=== PATIENT | male | born 1980 | race Caucasian/White ===

== ENCOUNTER 2017-04-04 02:21 | Emergency (ER) | payer OTHER ==
[~2017-04-04] VITALS: Ht 177.8 cm; Wt 100.0 kg
[~2017-04-04 02:21] MED LIST: AMOXICILLIN; IBUPROFEN
[2017-04-04] MEDS ORDERED: DEXTROSE 50% WATER 50ML SYRINGE IV ONE ×2 (03:57→03:59)
[2017-04-04 04:31] LABS: HEMATOCRIT. 38.7 % (42.0-52.0); HEMOGLOBIN. 13.2 g/dL (14.0-18.0); MEAN CORPUSCULAR HEMOGLOBIN 26.9 pg (28.0-32.0); MEAN CORPUSCULAR HGB CONC 34.1 g/dL (31.0-37.0); MEAN CORPUSCULAR VOLUME 78.9 fL (80.0-94.0); MEAN PLATELET VOLUME 9.5 fl (7.4-10.4); PLATELET 297 x1000/uL (130-400); RED CELL DISTRIBUTION WIDTH 15.9 % (11.6-14.6); WHITE BLOOD COUNT 9.5 x1000/uL (4.5-11.0)
[2017-04-04 04:39] LABS: DIFFERENTIAL COMMENT 1
[2017-04-04 04:44] LABS: ANION GAP 15; CALCIUM 7.9 mg/dL (8.5-10.1); CARBON DIOXIDE 27 mEq/L (21-32); CHLORIDE 100 mEq/L (98-107); INDEX HEMOLYSI 1 (1-3); INDEX ICTERIC 1 (1-4); INDEX LIPEMIC 1 (1-3); UREA NITROGEN BLOOD 13 mg/dL (7-21); eGFR > 60 mL/min (>60)
[2017-04-04 05:55] LABS: ATYPICAL LYMPHOCYTES 2; PLATELET ESTIMATE NORMAL
[2017-04-04 07:00] VITALS: BP 140/85
[2017-04-04 07:25] LABS: CLARITY URINE CLEAR (CLEAR); COLOR URINE YELLOW (YELLOW); GLUCOSE URINE NEGATIVE (NEGATIVE); KETONES URINE NEGATIVE (NEGATIVE); LEUKOCYTE ESTERASE URINE NEGATIVE (NEGATIVE); NITRITE URINE NEGATIVE (NEGATIVE); OCCULT BLOOD URINE 2+ (NEGATIVE); PH URINE 6.5 (4.5-8.0); PROTEIN URINE 4+ (NEGATIVE); SPECIFIC GRAVITY URINE 1.018 (1.005-1.030)
[2017-04-04 07:42] LABS: SQUAMOUS EPITHELIAL CELL URINE FEW /lpf (RARE/1+)
[2017-04-04 07:43] LABS: RBC URINE 15-25 /hpf (0-2)
[2017-04-04 07:44] LABS: FINE GRANULAR CASTS URINE 0-5 /lpf; HYALINE CASTS URINE 0-5 /lpf; WBC URINE 0-2 /hpf (0-2)
[2017-04-04 07:45] LABS: BACTERIA URINE 2+
[2017-04-05] MEDS ORDERED: GABA-290 PO (01:39)
[2017-04-05] MEDS ORDERED: GLYB5TAB7 PO (01:39)
[2017-04-05] MEDS ORDERED: LISI-604 PO (01:39)
[2017-04-05] MEDS ORDERED: METF10002 PO (01:39)
== END 2017-04-04 07:33 | disposition home or self-care (01) ==
LOC: ER 02:27
DX: E11.649 Type 2 diabetes mellitus with hypoglycemia without coma (principal); I10 Essential (primary) hypertension; Z79.1 Long term (current) use of non-steroidal anti-inflammatories (NSAID); Z79.2 Long term (current) use of antibiotics
CPT/HCPCS: 36415; 80048; 81001; 82962; 85025; 99284; Z7610

== ENCOUNTER 2017-04-04 16:14 | Inpatient (IN) | payer OTHER ==
[~2017-04-04] VITALS: Ht 180.3 cm; Wt 113.4 kg
[2017-04-04 17:49] LABS: CLARITY URINE CLOUDY (CLEAR); COLOR URINE YELLOW (YELLOW); GLUCOSE URINE NEGATIVE (NEGATIVE); KETONES URINE NEGATIVE (NEGATIVE); LEUKOCYTE ESTERASE URINE NEGATIVE (NEGATIVE); NITRITE URINE NEGATIVE (NEGATIVE); OCCULT BLOOD URINE 1+ (NEGATIVE); PROTEIN URINE 3+ (NEGATIVE); SPECIFIC GRAVITY URINE 1.013 (1.005-1.030)
[2017-04-04 18:05] LABS: AMORPHOUS SEDIMENT URINE 1+ /lpf; BACTERIA URINE 2+; SQUAMOUS EPITHELIAL CELL URINE FEW /lpf (RARE/1+); WBC URINE 0-2 /hpf (0-2)
[2017-04-04] MEDS ORDERED: DEXT 5%/0.45% NACL 500 ML IV ONE (20:15)
[2017-04-04] MEDS ORDERED: DEXTROSE 50% WATER 50ML SYRINGE IV ONE (23:15)
[2017-04-05 01:20] VITALS: BP 162/100
[2017-04-05] MEDS ORDERED: GLYB5TAB7 PO (01:39)
[2017-04-05] MEDS ORDERED: METF10002 PO (01:39)
[2017-04-05] MEDS ORDERED: LISI-604 PO (01:39)
[2017-04-05] MEDS ORDERED: GABA-290 PO (01:39)
[2017-04-05] MEDS ORDERED: DEXTROSE 50% WATER 50ML SYRINGE IV PRN (03:30)
[2017-04-05] MEDS ORDERED: DEXTROSE 10% WATER 500 ML IV SCH (03:30)
[2017-04-05] MEDS ORDERED: DEXTROSE 10% WATER 1,000 ML IV SCH (04:00)
[2017-04-05] MEDS: GUAIFENESIN-DM 200MG-20MG/10ML UDC PO PRN ×2 (04:16→15:50)
[2017-04-05] MEDS: BLOOD SUGAR DIAGNOSTIC STRIP TEST SCH ×4 (05:42→22:21)
[2017-04-05] MEDS: INSULIN LISPRO 100 UNITS/ML SUBCUT SCH ×4 (07:50→22:26)
[2017-04-05 08:00] VITALS: BP 158/94
[2017-04-05] MEDS: GABAPENTIN 300MG CAPSULE PO SCH ×2 (08:51→16:27)
[2017-04-05] MEDS: LISINOPRIL 20MG TABLET PO SCH (08:51)
[2017-04-05 09:38] LABS: HEMATOCRIT. 36.4 % (42.0-52.0); HEMOGLOBIN. 12.2 g/dL (14.0-18.0); MEAN CORPUSCULAR HEMOGLOBIN 26.5 pg (28.0-32.0); MEAN CORPUSCULAR HGB CONC 33.6 g/dL (31.0-37.0); MEAN CORPUSCULAR VOLUME 79.1 fL (80.0-94.0); MEAN PLATELET VOLUME 9.7 fl (7.4-10.4); PLATELET 296 x1000/uL (130-400); WHITE BLOOD COUNT 8.5 x1000/uL (4.5-11.0)
[2017-04-05 09:42] LABS: DIFFERENTIAL COMMENT 1
[2017-04-05 09:51] LABS: ALBUMIN 1.9 g/dL (3.4-5.0); ANION GAP 12; CALCIUM 7.5 mg/dL (8.5-10.1); CARBON DIOXIDE 28 mEq/L (21-32); CHLORIDE 103 mEq/L (98-107); UREA NITROGEN BLOOD 14 mg/dL (7-21); eGFR > 60 mL/min (>60)
[2017-04-05 09:52] LABS: ALANINE AMINOTRANSFERASE 53 IU/L (13-61); INDEX HEMOLYSI 1 (1-3); INDEX ICTERIC 1 (1-4); INDEX LIPEMIC 1 (1-3)
[2017-04-05] MEDS: HEPARIN 5000 UNITS/ML VIAL SUBCUT SCH ×2 (10:48→22:17)
[2017-04-05 12:00] VITALS: BP 151/94
[2017-04-05] MEDS ORDERED: DEXTROSE 5% WATER 1,000 ML IV SCH (15:00)
[2017-04-05 15:20] LABS: ANISOCYTOSIS 1+; PLATELET ESTIMATE NORMAL
[2017-04-05 16:00] VITALS: BP 147/94
[2017-04-05 20:00] VITALS: BP 159/88
[2017-04-06] VITALS: BP 124/73
[2017-04-06 04:00] VITALS: BP 132/81
[2017-04-06] MEDS: BLOOD SUGAR DIAGNOSTIC STRIP TEST SCH ×2 (06:52→12:45)
[2017-04-06] MEDS: INSULIN LISPRO 100 UNITS/ML SUBCUT SCH ×2 (07:50→13:00)
[2017-04-06 08:00] VITALS: BP 150/94
[2017-04-06] MEDS: GABAPENTIN 300MG CAPSULE PO SCH (08:37)
[2017-04-06] MEDS: LISINOPRIL 20MG TABLET PO SCH (08:38)
[2017-04-06] MEDS: GUAIFENESIN-DM 200MG-20MG/10ML UDC PO PRN (08:38)
[2017-04-06] MEDS: HEPARIN 5000 UNITS/ML VIAL SUBCUT SCH (08:39)
[2017-04-06 12:00] VITALS: BP 143/92
[2017-04-06 16:00] VITALS: BP 141/93
[2017-04-06 17:07] VITALS: BP 141/89
== END 2017-04-06 17:30 | disposition home or self-care (01) | DRG 639 ==
LOC: ER 16:22 → 6EST 20:18
PROVIDERS: ADMIT Internal Medicine; ATTEND Ophthalmology
DX: E11.649 Type 2 diabetes mellitus with hypoglycemia without coma (principal); I10 Essential (primary) hypertension; D64.9 Anemia, unspecified; T50.905A Adverse effect of unspecified drugs, medicaments and biological substances, initial encounter
CPT/HCPCS: 36415; 80053; 80061; 81001; 82962; 83036; 85025; 99285; J1644; J1815; J7030; J7070

== ENCOUNTER 2017-05-26 15:56 | Inpatient (IN) | payer OTHER ==
[~2017-05-26] VITALS: Ht 177.8 cm; Wt 116.6 kg
[~2017-05-26 15:56] MED LIST changes: -AMOXICILLIN; +GABA-290 PO; -IBUPROFEN; +LISI-604 PO; +METF10002 PO
[2017-05-26] MEDS ORDERED: SODIUM CHLORIDE 0.9% 1,000 ML IV ONE (20:21)
[2017-05-26 20:55] LABS: INR 1.1; PROTHROMBIN TIME 11.5 sec
[2017-05-26 20:56] LABS: BASOPHILS % 1.2 % (0.0-2.0); EOSINOPHILS % 1.6 % (0.0-5.0); HEMATOCRIT. 34.3 % (42.0-52.0); HEMOGLOBIN. 11.5 g/dL (14.0-18.0); LYMPHOCYTES % 15.5 % (20.0-50.0); MEAN CORPUSCULAR VOLUME 77.5 fL (80.0-94.0); MEAN PLATELET VOLUME 8.8 fl (7.4-10.4); MONOCYTES % 10.8 % (2.0-8.0); NEUTROPHILS % 70.9 % (40.0-76.0); PLATELET 426 x1000/uL (130-400); RED BLOOD CELL COUNT 4.42 mill/uL (4.7-6.1)
[2017-05-26 21:02] LABS: CARBON DIOXIDE 27 mEq/L (21-32); CHLORIDE 104 mEq/L (98-107)
[2017-05-26 21:52] LABS: CLARITY URINE CLEAR (CLEAR); COLOR URINE YELLOW (YELLOW); GLUCOSE URINE TRACE (NEGATIVE); KETONES URINE NEGATIVE (NEGATIVE); LEUKOCYTE ESTERASE URINE NEGATIVE (NEGATIVE); NITRITE URINE NEGATIVE (NEGATIVE); OCCULT BLOOD URINE 2+ (NEGATIVE); PH URINE 6.5 (4.5-8.0); PROTEIN URINE 4+ (NEGATIVE); SPECIFIC GRAVITY URINE 1.012 (1.005-1.030)
[2017-05-27] MEDS ORDERED: CEFTRIAXONE 1 G PREMIX 50 ML IV ONE (00:30)
[2017-05-27] MEDS ORDERED: AZITHROMYCIN 500 MG in DEXT 5% WATER 250 ML IV SCH (00:30)
[2017-05-27] MEDS ORDERED: SODIUM CHLORIDE 0.9% 1,000 ML IV ONE (00:36)
[2017-05-27 06:00] VITALS: BP 166/98
[2017-05-27] MEDS ORDERED: ASPI-1159 PO (06:15)
[2017-05-27] MEDS ORDERED: AMLO2.5T45 PO (06:15)
[2017-05-27 06:25] VITALS: BP 166/98
[2017-05-27 08:00] VITALS: BP 166/95
[2017-05-27] MEDS ORDERED: HYDROCODONE/ACETAMINOPHEN 5/325MG TABLET PO PRN (08:30)
[2017-05-27] MEDS ORDERED: ACETAMINOPHEN 325MG TABLET PO PRN (08:30)
[2017-05-27] MEDS ORDERED: CLONIDINE 0.1MG TABLET PO PRN (08:30)
[2017-05-27] MEDS: ENOXAPARIN 30MG/0.3ML SYR SUBCUT SCH ×2 (09:33→20:28)
[2017-05-27] MEDS: OMEPRAZOLE 20MG CAPSULE EXTENDED RELEASE PO SCH (09:33)
[2017-05-27] MEDS: ASPIRIN 81MG EC TABLET PO SCH (09:34)
[2017-05-27] MEDS: LISINOPRIL 20MG TABLET PO SCH (09:34)
[2017-05-27] MEDS: AMLODIPINE 5MG TABLET PO SCH (09:34)
[2017-05-27] MEDS ORDERED: DEXTROSE 50% WATER 50ML SYRINGE IV PRN (09:45)
[2017-05-27 11:00] LABS: BASOPHILS % 1.2 % (0.0-2.0); EOSINOPHILS % 1.5 % (0.0-5.0); HEMOGLOBIN. 12.8 g/dL (14.0-18.0); LYMPHOCYTES % 13.2 % (20.0-50.0); MEAN CORPUSCULAR VOLUME 77.4 fL (80.0-94.0); MEAN PLATELET VOLUME 9.1 fl (7.4-10.4); MONOCYTES % 8.6 % (2.0-8.0); NEUTROPHILS % 75.5 % (40.0-76.0); PLATELET 511 x1000/uL (130-400); RED BLOOD CELL COUNT 4.91 mill/uL (4.7-6.1); RED CELL DISTRIBUTION WIDTH 15.1 % (11.6-14.6)
[2017-05-27] MEDS: BLOOD SUGAR DIAGNOSTIC STRIP TEST SCH ×3 (11:11→20:32)
[2017-05-27] MEDS: SODIUM CHL 0.45% + KCL 20MEQ/L 1,000 ML IV SCH ×2 (11:11→20:56)
[2017-05-27] MEDS: INSULIN LISPRO 100 UNITS/ML SUBCUT SCH ×3 (11:17→20:33)
[2017-05-27 11:28] LABS: CARBON DIOXIDE 29 mEq/L (21-32); CHLORIDE 104 mEq/L (98-107)
[2017-05-27 12:00] VITALS: BP 152/88
[2017-05-27 16:00] VITALS: BP 163/97
[2017-05-27 20:00] VITALS: BP 145/84
[2017-05-28] VITALS: BP 149/89
[2017-05-28 04:00] VITALS: BP 151/91
[2017-05-28] MEDS: SODIUM CHL 0.45% + KCL 20MEQ/L 1,000 ML IV SCH (06:13)
[2017-05-28] MEDS: OMEPRAZOLE 20MG CAPSULE EXTENDED RELEASE PO SCH (06:13)
[2017-05-28] MEDS: INSULIN LISPRO 100 UNITS/ML SUBCUT SCH ×2 (06:14→12:45)
[2017-05-28] MEDS: BLOOD SUGAR DIAGNOSTIC STRIP TEST SCH ×2 (06:14→11:45)
[2017-05-28] MEDS ORDERED: IPRATROPIUM/ALBUTEROL 0.5-3(2.5)MG/3ML NEB HHN PRN (06:30)
[2017-05-28 06:34] LABS: CARBON DIOXIDE 26 mEq/L (21-32); CHLORIDE 106 mEq/L (98-107)
[2017-05-28 06:47] LABS: BASOPHILS % 1.2 % (0.0-2.0); EOSINOPHILS % 2.9 % (0.0-5.0); HEMATOCRIT. 32.5 % (42.0-52.0); HEMOGLOBIN. 10.9 g/dL (14.0-18.0); LYMPHOCYTES % 20.1 % (20.0-50.0); MEAN CORPUSCULAR HEMOGLOBIN 25.8 pg (28.0-32.0); MEAN CORPUSCULAR VOLUME 77.1 fL (80.0-94.0); MEAN PLATELET VOLUME 8.9 fl (7.4-10.4); MONOCYTES % 9.9 % (2.0-8.0); NEUTROPHILS % 65.9 % (40.0-76.0); PLATELET 431 x1000/uL (130-400); RED BLOOD CELL COUNT 4.22 mill/uL (4.7-6.1); RED CELL DISTRIBUTION WIDTH 14.6 % (11.6-14.6)
[2017-05-28 08:00] VITALS: BP 155/96
[2017-05-28] MEDS: ASPIRIN 81MG EC TABLET PO SCH (08:50)
[2017-05-28] MEDS: LISINOPRIL 20MG TABLET PO SCH (08:50)
[2017-05-28] MEDS: AMLODIPINE 5MG TABLET PO SCH (08:51)
[2017-05-28] MEDS: ENOXAPARIN 30MG/0.3ML SYR SUBCUT SCH (08:54)
[2017-05-28] MEDS ORDERED: CEFTRIAXONE 1 G PREMIX 50 ML IV SCH (09:00)
[2017-05-28] MEDS ORDERED: AZITHROMYCIN 500 MG in DEXT 5% WATER 250 ML IV SCH (09:00)
[2017-05-28 12:00] VITALS: BP 148/96
[2017-05-28 14:49] VITALS: BP 149/96
== END 2017-05-28 15:10 | disposition home or self-care (01) | DRG 195 ==
LOC: ER 21:39 → 5WST 05-27 00:29 → ENRESERV 05-27 04:26
PROVIDERS: ADMIT Internal Medicine; ATTEND Internal Medicine
DX: J18.9 Pneumonia, unspecified organism (principal); E11.65 Type 2 diabetes mellitus with hyperglycemia; I10 Essential (primary) hypertension
CPT/HCPCS: 36415; 71010; 74176; 80048; 80053; 81001; 82941; 82962; 83605; 83690; 85025; 85610; 86677; 87040; 93005; 94640; 96361; 96365; 96368; 99285; J0456; J0696; J1650; J1815; J3480; J7030; J7060; J7620

== ENCOUNTER 2017-08-23 13:28 | Inpatient (IN) | payer OTHER ==
[~2017-08-23] VITALS: Ht 177.8 cm; Wt 114.3 kg
[~2017-08-23 13:28] MED LIST changes: +ASPI-1159 PO
[2017-08-23] MEDS ORDERED: METOCLOPRAMIDE HCL 10MG/2ML VIAL IV STA (16:00)
[2017-08-23] MEDS ORDERED: SODIUM CHLORIDE 0.9% 1,000 ML IV ONE (16:00)
[2017-08-23] MEDS ORDERED: MORPHINE SULFATE 4 MG/ML CPJ (NOT FOR IM USE) IV STA (16:00)
[2017-08-23 16:27] LABS: CLARITY URINE CLEAR (CLEAR); COLOR URINE YELLOW (YELLOW); GLUCOSE URINE 2+ (NEGATIVE); KETONES URINE NEGATIVE (NEGATIVE); LEUKOCYTE ESTERASE URINE NEGATIVE (NEGATIVE); NITRITE URINE NEGATIVE (NEGATIVE); OCCULT BLOOD URINE 2+ (NEGATIVE); PH URINE 6.5 (4.5-8.0); PROTEIN URINE 4+ (NEGATIVE); SPECIFIC GRAVITY URINE 1.022 (1.005-1.030)
[2017-08-23 16:30] LABS: EOSINOPHILS % 1.8 % (0.0-5.0); HEMATOCRIT. 35.4 % (42.0-52.0); HEMOGLOBIN. 11.9 g/dL (14.0-18.0); LYMPHOCYTES % 8.9 % (20.0-50.0); MEAN CORPUSCULAR HEMOGLOBIN 25.4 pg (28.0-32.0); MEAN CORPUSCULAR VOLUME 75.8 fL (80.0-94.0); MEAN PLATELET VOLUME 8.4 fl (7.4-10.4); MONOCYTES % 8.9 % (2.0-8.0); NEUTROPHILS % 79.4 % (40.0-76.0); PLATELET 398 x1000/uL (130-400); RED BLOOD CELL COUNT 4.67 mill/uL (4.7-6.1)
[2017-08-23 16:34] LABS: CHLORIDE 104 mEq/L (98-107); INR 1.1; PROTHROMBIN TIME 11.2 sec (9.4-11.6)
[2017-08-23 16:41] LABS: CARBON DIOXIDE 26 mEq/L (21-32)
[2017-08-23 16:42] LABS: BETA HYDROXYBUTYRATE 0.2 mMol/L (0.0-0.3)
[2017-08-23] MEDS ORDERED: HYDRALAZINE 20MG/ML VIAL IV ONE (17:15)
[2017-08-23] MEDS ORDERED: FUROSEMIDE 40MG/4ML VIAL IVP ONE (17:15)
[2017-08-23] MEDS ORDERED: CLONIDINE 0.2MG TABLET PO ONE (20:30)
[2017-08-23 23:04] VITALS: BP 172/97
[2017-08-24] MEDS ORDERED: LISI40TA4 PO (00:06)
[2017-08-24] MEDS ORDERED: ACETAMINOPHEN 325MG TABLET PO PRN (00:15)
[2017-08-24] MEDS ORDERED: TEMAZEPAM 15MG CAPSULE PO PRN (00:15)
[2017-08-24] MEDS ORDERED: FUROSEMIDE 20MG/2ML VIAL IVP NR (00:15)
[2017-08-24] MEDS ORDERED: DEXTROSE 50% WATER 50ML SYRINGE IV PRN (01:15)
[2017-08-24] MEDS: ASPIRIN 81MG EC TABLET PO SCH ×2 (01:34→08:25)
[2017-08-24] MEDS: LISINOPRIL 40MG TABLET PO SCH ×2 (01:35→08:26)
[2017-08-24] MEDS: LEVOFLOXACIN 500MG PREMIX 100 ML IV SCH (03:36)
[2017-08-24 04:30] VITALS: BP 158/100
[2017-08-24] MEDS: SODIUM CHLORIDE 0.9% INJ 3ML FLUSH IVF SCH ×3 (05:54→22:24)
[2017-08-24] MEDS: NITROGLYCERIN OINT 1GM/INCH UDPKT TD SCH ×3 (05:54→22:26)
[2017-08-24] MEDS: GABAPENTIN 300MG CAPSULE PO SCH ×3 (05:54→22:20)
[2017-08-24] MEDS: BLOOD SUGAR DIAGNOSTIC STRIP TEST SCH ×4 (05:58→21:00)
[2017-08-24] MEDS: INSULIN LISPRO 100 UNITS/ML SUBCUT SCH ×4 (05:58→21:00)
[2017-08-24 07:26] LABS: BASOPHILS % 0.8 % (0.0-2.0); HEMATOCRIT. 29.8 % (42.0-52.0); LYMPHOCYTES % 12.2 % (20.0-50.0); MEAN CORPUSCULAR HEMOGLOBIN 25.6 pg (28.0-32.0); MEAN CORPUSCULAR VOLUME 76.2 fL (80.0-94.0); MEAN PLATELET VOLUME 8.8 fl (7.4-10.4); MONOCYTES % 12.4 % (2.0-8.0); NEUTROPHILS % 71.6 % (40.0-76.0); PLATELET 322 x1000/uL (130-400); RED BLOOD CELL COUNT 3.91 mill/uL (4.7-6.1)
[2017-08-24 07:46] LABS: TROPONIN I 0.15 ng/mL (0.00-0.04)
[2017-08-24 08:00] VITALS: BP 170/100
[2017-08-24] MEDS: CARVEDILOL 12.5MG TABLET PO SCH ×2 (08:26→22:22)
[2017-08-24] MEDS: ENOXAPARIN 30MG/0.3ML SYR SUBCUT SCH ×2 (08:29→22:23)
[2017-08-24] MEDS ORDERED: PNEUMOCOCCAL 23-VAL P-SAC VAC 0.5 ML IM ONE (10:00)
[2017-08-24] MEDS ORDERED: CLONIDINE 0.1MG TABLET PO PRN (11:15)
[2017-08-24] MEDS ORDERED: CLONIDINE 0.2MG TABLET PO PRN (11:15)
[2017-08-24 12:00] VITALS: BP 128/76
[2017-08-24] MEDS: FUROSEMIDE 40MG/4ML VIAL IVP SCH (12:00)
[2017-08-24 12:06] LABS: TOTAL IRON BINDING CAPACITY 131 ug/dL (250-450)
[2017-08-24] MEDS: HYDRALAZINE HCL 25MG TABLET PO SCH ×2 (14:09→22:23)
[2017-08-24 16:00] VITALS: BP 131/77
[2017-08-24] MEDS ORDERED: POTASSIUM CHLORIDE 20MEQ TABLET SR PO NR (17:28)
[2017-08-24 19:44] VITALS: BP 139/85
[2017-08-24 22:18] VITALS: BP 151/92
[2017-08-25 00:51] VITALS: BP 142/79
[2017-08-25] MEDS: LEVOFLOXACIN 500MG PREMIX 100 ML IV SCH (03:48)
[2017-08-25 04:57] VITALS: BP 130/77
[2017-08-25] MEDS: NITROGLYCERIN OINT 1GM/INCH UDPKT TD SCH ×3 (05:08→21:36)
[2017-08-25] MEDS: HYDRALAZINE HCL 25MG TABLET PO SCH (05:08)
[2017-08-25] MEDS: SODIUM CHLORIDE 0.9% INJ 3ML FLUSH IVF SCH ×3 (05:08→21:19)
[2017-08-25] MEDS: GABAPENTIN 300MG CAPSULE PO SCH ×3 (05:08→21:19)
[2017-08-25] MEDS: INSULIN LISPRO 100 UNITS/ML SUBCUT SCH ×4 (06:07→20:42)
[2017-08-25] MEDS: BLOOD SUGAR DIAGNOSTIC STRIP TEST SCH ×4 (06:07→20:15)
[2017-08-25 07:32] LABS: CLARITY URINE CLEAR (CLEAR); COLOR URINE YELLOW (YELLOW); GLUCOSE URINE TRACE (NEGATIVE); KETONES URINE NEGATIVE (NEGATIVE); LEUKOCYTE ESTERASE URINE NEGATIVE (NEGATIVE); NITRITE URINE NEGATIVE (NEGATIVE); OCCULT BLOOD URINE TRACE (NEGATIVE); PH URINE 6.5 (4.5-8.0); PROTEIN URINE 3+ (NEGATIVE); SPECIFIC GRAVITY URINE 1.011 (1.005-1.030)
[2017-08-25 07:34] LABS: EOSINOPHILS % 3.1 % (0.0-5.0); HEMATOCRIT. 29.2 % (42.0-52.0); HEMOGLOBIN. 9.7 g/dL (14.0-18.0); LYMPHOCYTES % 14.4 % (20.0-50.0); MEAN CORPUSCULAR HEMOGLOBIN 25.4 pg (28.0-32.0); MEAN CORPUSCULAR VOLUME 76.3 fL (80.0-94.0); MEAN PLATELET VOLUME 8.8 fl (7.4-10.4); MONOCYTES % 12.2 % (2.0-8.0); NEUTROPHILS % 69.3 % (40.0-76.0); PLATELET 331 x1000/uL (130-400); RED BLOOD CELL COUNT 3.82 mill/uL (4.7-6.1); RED CELL DISTRIBUTION WIDTH 15.9 % (11.6-14.6)
[2017-08-25 07:35] LABS: CARBON DIOXIDE 28 mEq/L (21-32); CHLORIDE 102 mEq/L (98-107)
[2017-08-25 08:00] VITALS: BP 125/72
[2017-08-25] MEDS: FUROSEMIDE 40MG/4ML VIAL IVP SCH (08:13)
[2017-08-25] MEDS: ASPIRIN 81MG EC TABLET PO SCH (08:15)
[2017-08-25] MEDS: CARVEDILOL 12.5MG TABLET PO SCH ×2 (08:15→20:13)
[2017-08-25] MEDS: ENOXAPARIN 30MG/0.3ML SYR SUBCUT SCH ×2 (08:16→20:13)
[2017-08-25] MEDS ORDERED: LISINOPRIL 10MG TABLET PO SCH (09:00)
[2017-08-25 11:41] VITALS: BP 125/72
[2017-08-25] MEDS: HYDRALAZINE HCL 50MG TABLET PO SCH ×2 (13:13→21:20)
[2017-08-25] MEDS ORDERED: REGADENOSON 0.4 MG/5 ML IV SCH (13:15)
[2017-08-25] MEDS ORDERED: MAGNESIUM 2 G PREMIX 50 ML IV ONE (13:15)
[2017-08-25] MEDS ORDERED: POTASSIUM CHLORIDE 20MEQ TABLET SR PO SCH (13:15)
[2017-08-25 13:35] LABS: *AMPHETAMINES SCREEN URINE NEGATIVE (NEGATIVE); *BARBITURATES SCREEN URINE NEGATIVE (NEGATIVE); *BENZODIAZEPINES SCREEN URINE NEGATIVE (NEGATIVE); *COCAINE SCREEN URINE NEGATIVE (NEGATIVE); CANNABINOID URINE SCREEN NEGATIVE (NEGATIVE); METHADONE URINE SCREEN NEGATIVE (NEGATIVE); OPIATES URINE SCREEN PRESUMTIVE POSITIVE (NEGATIVE); PHENCYCLIDINE URINE SCREEN NEGATIVE (NEGATIVE)
[2017-08-25] MEDS ORDERED: ALBUMIN HUMAN 25GM/100ML (25%) IV SCH (15:00)
[2017-08-25] MEDS ORDERED: MAGNESIUM SULFATE 3 GM in DEXTROSE 5% WATER 100 ML IV SCH (15:00)
[2017-08-25 15:45] VITALS: BP 111/67
[2017-08-25 16:51] LABS: CREATINE KINASE 84 IU/L (39-308)
[2017-08-25 17:19] LABS: HEPATITIS B SURFACE ANTIGEN NEGATIVE
[2017-08-25 20:00] VITALS: BP 126/76
[2017-08-26] VITALS: BP 128/78
[2017-08-26] MEDS: LEVOFLOXACIN 500MG PREMIX 100 ML IV SCH (02:26)
[2017-08-26 04:00] VITALS: BP 132/76
[2017-08-26] MEDS: HYDRALAZINE HCL 50MG TABLET PO SCH ×3 (05:23→21:18)
[2017-08-26] MEDS: NITROGLYCERIN OINT 1GM/INCH UDPKT TD SCH ×3 (05:23→21:18)
[2017-08-26] MEDS: GABAPENTIN 300MG CAPSULE PO SCH ×3 (05:23→21:18)
[2017-08-26] MEDS: SODIUM CHLORIDE 0.9% INJ 3ML FLUSH IVF SCH ×3 (05:25→21:23)
[2017-08-26 06:09] LABS: BASOPHILS % 0.7 % (0.0-2.0); EOSINOPHILS % 3.2 % (0.0-5.0); HEMATOCRIT. 25.5 % (42.0-52.0); HEMOGLOBIN. 8.5 g/dL (14.0-18.0); LYMPHOCYTES % 19.3 % (20.0-50.0); MEAN CORPUSCULAR HEMOGLOBIN 25.6 pg (28.0-32.0); MEAN CORPUSCULAR VOLUME 76.8 fL (80.0-94.0); MONOCYTES % 11.9 % (2.0-8.0); NEUTROPHILS % 64.9 % (40.0-76.0); PLATELET 269 x1000/uL (130-400); RED BLOOD CELL COUNT 3.32 mill/uL (4.7-6.1); RED CELL DISTRIBUTION WIDTH 16.1 % (11.6-14.6)
[2017-08-26] MEDS: BLOOD SUGAR DIAGNOSTIC STRIP TEST SCH ×4 (06:16→21:10)
[2017-08-26] MEDS: INSULIN LISPRO 100 UNITS/ML SUBCUT SCH ×4 (06:43→21:00)
[2017-08-26 07:40] VITALS: BP 120/78
[2017-08-26 07:57] LABS: PHOSPHORUS 4.2 mg/dL (2.5-4.9)
[2017-08-26] MEDS ORDERED: FUROSEMIDE 40MG/4ML VIAL IVP SCH (09:00)
[2017-08-26] MEDS ORDERED: REGADENOSON 0.4 MG/5 ML IV ONE (09:05)
[2017-08-26 09:30] LABS: HAPTOGLOBIN 302 mg/dL (30-200)
[2017-08-26] MEDS ORDERED: ALBUMIN HUMAN 25GM/100ML (25%) IV SCH (10:00)
[2017-08-26] MEDS: CARVEDILOL 12.5MG TABLET PO SCH (11:24)
[2017-08-26] MEDS: ASPIRIN 81MG EC TABLET PO SCH (11:25)
[2017-08-26] MEDS: ENOXAPARIN 30MG/0.3ML SYR SUBCUT SCH ×2 (11:25→21:10)
[2017-08-26 11:41] VITALS: BP 124/78
[2017-08-26 15:53] VITALS: BP 122/75
[2017-08-26 20:00] VITALS: BP 142/82
[2017-08-26] MEDS: CARVEDILOL 6.25 MG TABLET PO SCH (21:08)
[2017-08-27] VITALS: BP 140/80
[2017-08-27 04:39] VITALS: BP 132/78
[2017-08-27] MEDS: LEVOFLOXACIN 250MG PREMIX 50 ML IV SCH ×2 (05:25→05:39)
[2017-08-27] MEDS: GABAPENTIN 300MG CAPSULE PO SCH ×3 (05:25→21:59)
[2017-08-27] MEDS: NITROGLYCERIN OINT 1GM/INCH UDPKT TD SCH ×3 (05:25→21:58)
[2017-08-27] MEDS: HYDRALAZINE HCL 50MG TABLET PO SCH ×3 (05:25→21:59)
[2017-08-27] MEDS: SODIUM CHLORIDE 0.9% INJ 3ML FLUSH IVF SCH ×3 (05:26→22:07)
[2017-08-27] MEDS: BLOOD SUGAR DIAGNOSTIC STRIP TEST SCH ×4 (05:40→21:00)
[2017-08-27 06:42] LABS: BASOPHILS % 0.8 % (0.0-2.0); EOSINOPHILS % 3.9 % (0.0-5.0); HEMATOCRIT. 26.8 % (42.0-52.0); HEMOGLOBIN. 9.2 g/dL (14.0-18.0); LYMPHOCYTES % 15.9 % (20.0-50.0); MEAN CORPUSCULAR HEMOGLOBIN 26.2 pg (28.0-32.0); MEAN CORPUSCULAR VOLUME 76.4 fL (80.0-94.0); MEAN PLATELET VOLUME 9.3 fl (7.4-10.4); MONOCYTES % 10.4 % (2.0-8.0); PLATELET 298 x1000/uL (130-400); RED BLOOD CELL COUNT 3.51 mill/uL (4.7-6.1); RED CELL DISTRIBUTION WIDTH 16.6 % (11.6-14.6)
[2017-08-27 07:18] LABS: PHOSPHORUS 4.5 mg/dL (2.5-4.9)
[2017-08-27] MEDS: INSULIN LISPRO 100 UNITS/ML SUBCUT SCH ×4 (07:40→21:00)
[2017-08-27 08:00] VITALS: BP 148/87
[2017-08-27] MEDS: ENOXAPARIN 30MG/0.3ML SYR SUBCUT SCH ×2 (10:14→22:00)
[2017-08-27] MEDS: CARVEDILOL 6.25 MG TABLET PO SCH ×2 (10:14→21:59)
[2017-08-27] MEDS: ASPIRIN 81MG EC TABLET PO SCH (10:14)
[2017-08-27] MEDS ORDERED: ALBUMIN HUMAN 25GM/100ML (25%) IV NR (10:30)
[2017-08-27 12:00] VITALS: BP 138/81
[2017-08-27 16:00] VITALS: BP 146/82
[2017-08-27 19:07] LABS: ANTI-NUCLEAR ANTIBODIES DIRECT Negative (Negative)
[2017-08-27 20:00] VITALS: BP 153/82
[2017-08-28] VITALS: BP 151/85
[2017-08-28 04:00] VITALS: BP 146/79
[2017-08-28] MEDS: BLOOD SUGAR DIAGNOSTIC STRIP TEST SCH ×2 (06:04→12:10)
[2017-08-28] MEDS: INSULIN LISPRO 100 UNITS/ML SUBCUT SCH ×2 (06:04→12:40)
[2017-08-28] MEDS: GABAPENTIN 300MG CAPSULE PO SCH ×2 (06:09→13:21)
[2017-08-28] MEDS: SODIUM CHLORIDE 0.9% INJ 3ML FLUSH IVF SCH ×2 (06:10→13:20)
[2017-08-28] MEDS: LEVOFLOXACIN 250MG PREMIX 50 ML IV SCH (06:10)
[2017-08-28] MEDS: NITROGLYCERIN OINT 1GM/INCH UDPKT TD SCH ×2 (06:10→13:21)
[2017-08-28] MEDS: HYDRALAZINE HCL 50MG TABLET PO SCH ×2 (06:10→13:21)
[2017-08-28 06:12] LABS: BASOPHILS % 1.2 % (0.0-2.0); EOSINOPHILS % 4.1 % (0.0-5.0); HEMATOCRIT. 26.6 % (42.0-52.0); HEMOGLOBIN. 8.9 g/dL (14.0-18.0); LYMPHOCYTES % 13.6 % (20.0-50.0); MEAN CORPUSCULAR HEMOGLOBIN 25.8 pg (28.0-32.0); MEAN CORPUSCULAR VOLUME 77.1 fL (80.0-94.0); MEAN PLATELET VOLUME 9.4 fl (7.4-10.4); MONOCYTES % 11.1 % (2.0-8.0); PLATELET 290 x1000/uL (130-400); RED BLOOD CELL COUNT 3.45 mill/uL (4.7-6.1); RED CELL DISTRIBUTION WIDTH 16.3 % (11.6-14.6)
[2017-08-28 08:00] VITALS: BP 112/70
[2017-08-28 08:13] LABS: PHOSPHORUS 4.5 mg/dL (2.5-4.9)
[2017-08-28 08:22] LABS: A/G RATIO 0.8 (0.7-1.7); ALBUMIN 2.1 g/dL (2.9-4.4); ALPHA-1-GLOBULIN 0.3 g/dL (0.0-0.4); ALPHA-2-GLOBULIN 0.9 g/dL (0.4-1.0); BETA GLOBULIN 0.7 g/dL (0.7-1.3); COMPLEMENT C3 87 mg/dL (82-167); GAMMA GLOBULINS 0.7 g/dL (0.4-1.8); GLOBULIN TOTAL 2.7 g/dL (2.2-3.9); M-SPIKE Not Observed g/dL (Not Observed); TOTAL PROTEIN SERUM 4.8 g/dL (6.0-8.5)
[2017-08-28] MEDS: CARVEDILOL 6.25 MG TABLET PO SCH (09:00)
[2017-08-28] MEDS ORDERED: FUROSEMIDE 40MG TABLET PO SCH (09:00)
[2017-08-28] MEDS: ENOXAPARIN 30MG/0.3ML SYR SUBCUT SCH (10:03)
[2017-08-28] MEDS: ASPIRIN 81MG EC TABLET PO SCH (10:03)
[2017-08-28 12:00] VITALS: BP 138/76
[2017-08-28 14:46] VITALS: BP 138/76
[2017-08-28] MEDS ORDERED: METOPROLOL TARTRATE 25MG TABLET PO SCH (21:00)
[2017-08-29] MEDS ORDERED: LEVOFLOXACIN 250MG TABLET PO SCH (11:00)
[2017-09-02 15:09] LABS: ALBUMIN URINE 60.8 % (.); ALPHA-1-GLOBULIN URINE 4.7 % (.); ALPHA-2-GLOBULIN URINE 10.8 % (.); BETA GLOBULIN URINE 10.3 % (.); GAMMA GLOBULIN URINE 13.5 % (.); TOTAL PROTEIN RANDOM URINE 543.2 mg/dL (Not Estab.)
== END 2017-08-28 15:30 | disposition home or self-care (01) | DRG 291 ==
LOC: ER 15:48 → EDBEDREQ 17:56 → EDBEDREQTM 17:56 → EDBEDREQSVC 17:56 → ENRESERV 18:17 → 8WST 23:02
PROVIDERS: ADMIT Internal Medicine; ATTEND Internal Medicine
DX: I13.0 Hypertensive heart and chronic kidney disease with heart failure and stage 1 through stage 4 chronic kidney disease, or unspecified chronic kidney disease (principal); I50.23 Acute on chronic systolic (congestive) heart failure; N17.9 Acute kidney failure, unspecified; I31.3 Pericardial effusion (noninflammatory); E88.09 Other disorders of plasma-protein metabolism, not elsewhere classified; E11.22 Type 2 diabetes mellitus with diabetic chronic kidney disease; E11.42 Type 2 diabetes mellitus with diabetic polyneuropathy; J98.11 Atelectasis; I16.0 Hypertensive urgency; N18.9 Chronic kidney disease, unspecified; I42.9 Cardiomyopathy, unspecified; D72.829 Elevated white blood cell count, unspecified; E87.6 Hypokalemia; D64.9 Anemia, unspecified; J98.01 Acute bronchospasm; Z79.899 Other long term (current) drug therapy; Z82.49 Family history of ischemic heart disease and other diseases of the circulatory system; Z83.3 Family history of diabetes mellitus; Z79.84 Long term (current) use of oral hypoglycemic drugs; Z79.82 Long term (current) use of aspirin
CPT/HCPCS: 36415; 71010; 74176; 76705; 76770; 78452; 78582; 80048; 80053; 80061; 80305; 81001; 82010; 82270; 82550; 82570; 82728; 82962; 83010; 83036; 83540; 83550; 83615; 83690; 83735; 83880; 83935; 84100; 84155; 84156; 84165; 84166; 84300; 84443; 84484; 85025; 85610; 86038; 86060; 86160; 86592; 86803; 87186; 87340; 90732; 93005; 93017; 93306; 93970; 96361; 96374; 96375; 99285; A9500; A9558; J0360; J1650; J1815; J1940; J1956; J2270; J2765; J2785; J3475; J7030; J7050; J7060; P9047; A4315

== ENCOUNTER 2020-01-03 13:47 | Emergency (ER) | payer MEDICAID, OTHER ==
[~2020-01-03] VITALS: Ht 177.8 cm; Wt 113.0 kg
[~2020-01-03 13:47] MED LIST changes: -ASPI-1159 PO; +ASPI-1497 PO; +CALC30CA MT; +CARV25TA47 MT; +FERR-71 MT; +FURO40TA5 MT; -GABA-290 PO; +GABA-531 PO; +HYDR100T26 PO; +ISOS30TA6 MT; -LISI-604 PO; -METF10002 PO; +METO5TAB7 MT; +SITA25TA3 MT
[2020-01-03 17:57] LABS: BASOPHILS % 1.8 % (0.0-2.0); LYMPHOCYTES % 10.5 % (20.0-50.0); MEAN CORPUSCULAR HEMOGLOBIN 24.1 pg (28.0-32.0); MEAN CORPUSCULAR VOLUME 73.8 fL (80.0-94.0); MEAN PLATELET VOLUME 8.3 fl (7.4-10.4); MONOCYTES % 10.9 % (2.0-8.0); NEUTROPHILS % 68.8 % (40.0-76.0); PLATELET 353 x1000/uL (130-400); RED BLOOD CELL COUNT 2.89 mill/uL (4.7-6.1)
[2020-01-03 18:01] LABS: CHLORIDE 105 mEq/L (98-107); HEMATOCRIT. 21.4 % (42.0-52.0); INR 1.1; PROTHROMBIN TIME 11.7 sec (9.6-11.0)
[2020-01-03 18:42] VITALS: BP 152/83
== END 2020-01-03 18:49 | disposition home or self-care (01) ==
LOC: ER 13:47
DX: D64.9 Anemia, unspecified (principal); R04.0 Epistaxis; H11.32 Conjunctival hemorrhage, left eye; I11.0 Hypertensive heart disease with heart failure; I50.9 Heart failure, unspecified; N19 Unspecified kidney failure; Z79.899 Other long term (current) drug therapy; Z79.82 Long term (current) use of aspirin; Z87.448 Personal history of other diseases of urinary system
CPT/HCPCS: 36415; 80053; 85025; 85610; 86850; 86900; 86901; 93005; 99284; Z7610

== ENCOUNTER 2020-01-22 09:29 | Inpatient (IN) | payer BC ==
[~2020-01-22] VITALS: Ht 180.3 cm; Wt 106.7 kg
[2020-01-22 10:56] LABS: BASOPHILS % 1.5 % (0.0-2.0); CLARITY URINE TURBID (CLEAR); COLOR URINE YELLOW (YELLOW); KETONES URINE NEGATIVE (NEGATIVE); LEUKOCYTE ESTERASE URINE 3+ (NEGATIVE); LYMPHOCYTES % 7.8 % (20.0-50.0); MEAN CORPUSCULAR HEMOGLOBIN 23.8 pg (28.0-32.0); MEAN PLATELET VOLUME 9.4 fl (7.4-10.4); MONOCYTES % 9.8 % (2.0-8.0); NEUTROPHILS % 75.9 % (40.0-76.0); NITRITE URINE NEGATIVE (NEGATIVE); OCCULT BLOOD URINE NEGATIVE (NEGATIVE); PLATELET 214 x1000/uL (130-400); PROTEIN URINE 2+ (NEGATIVE); RED CELL DISTRIBUTION WIDTH 18.6 % (11.6-14.6); SPECIFIC GRAVITY URINE 1.013 (1.005-1.030); UROBILINOGEN URINE 0.2 E.U./dL (0.2-1.0)
[2020-01-22 10:58] LABS: HEMOGLOBIN. 6.4 g/dL (14.0-18.0)
[2020-01-22 11:00] LABS: CHLORIDE 103 mEq/L (98-107)
[2020-01-22] MEDS ORDERED: FAMOTIDINE 20MG TABLET PO STA (11:04)
[2020-01-22] MEDS ORDERED: CALCIUM GLUCONATE 1,000 MG in DEXTROSE 5% WATER 50 ML IV ONE (11:30)
[2020-01-22 12:25] LABS: PHOSPHORUS 11.4 mg/dL (2.5-4.9)
[2020-01-22] MEDS ORDERED: MAGNESIUM/ALUMINUM HYDROXIDE/SIMETHICONE 30ML UDC PO PRN (12:30)
[2020-01-22] MEDS ORDERED: ACETAMINOPHEN 325MG TABLET PO PRN (12:30)
[2020-01-22] MEDS ORDERED: DOCUSATE SODIUM 100MG CAPSULE PO PRN (12:30)
[2020-01-22] MEDS ORDERED: LORAZEPAM 0.5MG TABLET PO PRN (12:30)
[2020-01-22] MEDS ORDERED: METOLAZONE 10MG TABLET PO NR (12:30)
[2020-01-22] MEDS ORDERED: TRAMADOL 50MG TABLET PO PRN (12:30)
[2020-01-22] MEDS ORDERED: NITROGLYCERIN 0.4MG TABLET SL SL PRN (12:30)
[2020-01-22] MEDS ORDERED: SODIUM POLYSTYRENE SULFONATE 15 G/60 ML BOT PO NR (12:30)
[2020-01-22] MEDS ORDERED: ZOLPIDEM TARTRATE 5MG TABLET PO PRN (12:30)
[2020-01-22] MEDS ORDERED: SODIUM BICARBONATE 8.4% 1 MEQ/ML 50ML SYR IV NR (12:30)
[2020-01-22] MEDS ORDERED: DIPHENHYDRAMINE 50MG/ML VIAL IV PRN (12:30)
[2020-01-22] MEDS ORDERED: GUAIFENESIN 200MG/10ML SUGAR FREE UDC PO PRN (12:30)
[2020-01-22] MEDS ORDERED: IPRATROPIUM/ALBUTEROL 0.5-3(2.5)MG/3ML NEB NEB PRN (12:30)
[2020-01-22] MEDS ORDERED: SEVELAMER CARBONATE 800 MG TABLET PO NR ×2 (12:45→17:00)
[2020-01-22] MEDS ORDERED: CITRIC ACID/SODIUM CITRATE SOLN 15ML UDC PO NR (12:45)
[2020-01-22] MEDS ORDERED: CEFTRIAXONE 1 G PREMIX 50 ML IV ONE (13:00)
[2020-01-22 13:01] LABS: *AMPHETAMINES SCREEN URINE NEGATIVE (NEGATIVE)
[2020-01-22 13:02] LABS: *BARBITURATES SCREEN URINE NEGATIVE (NEGATIVE); *BENZODIAZEPINES SCREEN URINE NEGATIVE (NEGATIVE); *COCAINE SCREEN URINE NEGATIVE (NEGATIVE); METHADONE URINE SCREEN NEGATIVE (NEGATIVE); OPIATES URINE SCREEN NEGATIVE (NEGATIVE); PHENCYCLIDINE URINE SCREEN NEGATIVE (NEGATIVE)
[2020-01-22 13:03] LABS: CANNABINOID URINE SCREEN NEGATIVE (NEGATIVE)
[2020-01-22 14:13] LABS: FOLIC ACID (FOLATE) SERUM 9.5 ng/mL (>5.38)
[2020-01-22] MEDS ORDERED: MAGNESIUM 4 G PREMIX 100 ML IV SCH (15:30)
[2020-01-22] MEDS ORDERED: POTASSIUM CHLORIDE INJ 40 MEQ in DEXT 5% WATER 250 ML IV ONE (16:45)
[2020-01-22] MEDS: ENOXAPARIN 40MG/0.4ML SYR SUBCUT SCH (16:54)
[2020-01-22 19:49] LABS: INR 1.2; PROTHROMBIN TIME 12.5 sec (9.6-11.0)
[2020-01-22 19:56] LABS: CREATINE KINASE MB FRACTION 7.9 ng/mL (0.5-3.6)
[2020-01-22] MEDS ORDERED: FAMOTIDINE 20MG TABLET PO SCH (21:00)
[2020-01-22] MEDS ORDERED: FUROSEMIDE 40MG/4ML VIAL IVP NR (22:00)
[2020-01-23] VITALS (15 sets, daily range): BP systolic 124–161; BP diastolic 56–83
[2020-01-23 05:53] LABS: BASOPHILS % 1.6 % (0.0-2.0); HEMATOCRIT. 23.1 % (42.0-52.0); HEMOGLOBIN. 7.5 g/dL (14.0-18.0); LYMPHOCYTES % 10.3 % (20.0-50.0); MEAN CORPUSCULAR HEMOGLOBIN 24.3 pg (28.0-32.0); MEAN PLATELET VOLUME 9.5 fl (7.4-10.4); MONOCYTES % 13.8 % (2.0-8.0); NEUTROPHILS % 68.3 % (40.0-76.0); PLATELET 211 x1000/uL (130-400); RED BLOOD CELL COUNT 3.08 mill/uL (4.7-6.1); RED CELL DISTRIBUTION WIDTH 18.9 % (11.6-14.6)
[2020-01-23 05:54] LABS: CHLORIDE 104 mEq/L (98-107)
[2020-01-23] MEDS ORDERED: SODIUM BICARBONATE 4% (2.4MEQ) 5ML VIAL IV ONE (08:18)
[2020-01-23] MEDS ORDERED: LIDOCAINE HCL 1% 20ML VIAL (Pyxis) INJ ONE (08:18)
[2020-01-23] MEDS ORDERED: FENTANYL CITRATE/PF 50MCG/ML 2ML VIAL ONE (08:27)
[2020-01-23] MEDS ORDERED: FUROSEMIDE 40MG/4ML VIAL IVP SCH (09:00)
[2020-01-23] MEDS ORDERED: SEVELAMER CARBONATE 800 MG TABLET PO SCH (09:00)
[2020-01-23] MEDS ORDERED: FENTANYL CITRATE/PF 50MCG/ML 2ML VIAL IV ONE (09:15)
[2020-01-23] MEDS: ONDANSETRON HCL 4MG/2ML INJ IV PRN ×2 (11:12→17:09)
[2020-01-23] MEDS ORDERED: MANNITOL 12.5G (25%) VIAL 50ML IV NR (11:45)
[2020-01-23 13:02] LABS: HEPATITIS B SURFACE AB < 3.1 mIU/mL
[2020-01-23 13:13] LABS: HEPATITIS B SURFACE ANTIGEN NEGATIVE
[2020-01-23 13:43] LABS: HEPATITIS A AB IGM NEGATIVE (NEGATIVE)
[2020-01-23] MEDS: FAMOTIDINE 20MG TABLET PO SCH (14:16)
[2020-01-23] MEDS: CITRIC ACID/SODIUM CITRATE SOLN 15ML UDC PO SCH ×2 (14:16→17:02)
[2020-01-23] MEDS: FOLIC ACID/VITAMIN B COMP W-C TABLET PO SCH (14:16)
[2020-01-23] MEDS ORDERED: AMLO5TAB88 PO (15:27)
[2020-01-23] MEDS: ENOXAPARIN 40MG/0.4ML SYR SUBCUT SCH (17:02)
[2020-01-23] MEDS: CALCIUM ACETATE 667 MG TABLET PO SCH (17:02)
[2020-01-23] MEDS ORDERED: EPOETIN ALFA 10000UNITS/ML VIAL SUBCUT SCH (21:00)
[2020-01-23] MEDS: CLONIDINE 0.1MG TABLET PO PRN (21:23)
[2020-01-24] VITALS: BP 145/68
[2020-01-24 04:00] VITALS: BP 148/59
[2020-01-24 08:00] VITALS: BP 144/75
[2020-01-24] MEDS: ONDANSETRON HCL 4MG/2ML INJ IV PRN (09:08)
[2020-01-24] MEDS: FOLIC ACID/VITAMIN B COMP W-C TABLET PO SCH (10:01)
[2020-01-24] MEDS: FAMOTIDINE 20MG TABLET PO SCH (10:02)
[2020-01-24] MEDS: CITRIC ACID/SODIUM CITRATE SOLN 15ML UDC PO SCH ×3 (10:02→16:46)
[2020-01-24] MEDS: CALCIUM ACETATE 667 MG TABLET PO SCH ×3 (10:02→21:14)
[2020-01-24 12:00] VITALS: BP 133/60
[2020-01-24] MEDS: METOCLOPRAMIDE HCL 10MG/2ML VIAL IV SCH ×3 (13:26→23:54)
[2020-01-24 16:00] VITALS: BP 137/60
[2020-01-24] MEDS: ENOXAPARIN 40MG/0.4ML SYR SUBCUT SCH (16:46)
[2020-01-24 20:00] VITALS: BP 167/89
[2020-01-24] MEDS: CLONIDINE 0.1MG TABLET PO PRN (21:15)
[2020-01-25] VITALS: BP 167/72
[2020-01-25 04:00] VITALS: BP 159/52
[2020-01-25] MEDS: METOCLOPRAMIDE HCL 10MG/2ML VIAL IV SCH ×2 (06:21→12:09)
[2020-01-25 06:37] LABS: BASOPHILS % 1.4 % (0.0-2.0); HEMATOCRIT. 23.3 % (42.0-52.0); HEMOGLOBIN. 7.7 g/dL (14.0-18.0); LYMPHOCYTES % 10.1 % (20.0-50.0); MEAN CORPUSCULAR HEMOGLOBIN 24.8 pg (28.0-32.0); MEAN CORPUSCULAR VOLUME 74.7 fL (80.0-94.0); MEAN PLATELET VOLUME 9.6 fl (7.4-10.4); MONOCYTES % 12.4 % (2.0-8.0); NEUTROPHILS % 69.1 % (40.0-76.0); PLATELET 230 x1000/uL (130-400); RED BLOOD CELL COUNT 3.12 mill/uL (4.7-6.1); RED CELL DISTRIBUTION WIDTH 18.9 % (11.6-14.6)
[2020-01-25 08:25] VITALS: BP 152/68
[2020-01-25] MEDS: CITRIC ACID/SODIUM CITRATE SOLN 15ML UDC PO SCH (09:03)
[2020-01-25] MEDS: FOLIC ACID/VITAMIN B COMP W-C TABLET PO SCH (09:03)
[2020-01-25] MEDS: FAMOTIDINE 20MG TABLET PO SCH (09:03)
[2020-01-25] MEDS: CALCIUM ACETATE 667 MG TABLET PO SCH ×2 (09:03→14:27)
[2020-01-25 12:20] VITALS: BP 154/75
[2020-01-25 13:07] VITALS: BP 154/75
== END 2020-01-25 14:53 | disposition home or self-care (01) | DRG 674 ==
LOC: ER 10:13 → 7WST 11:30 → SUPCPDRO 12:31 → ENRESERV 01-23 07:47
PROVIDERS: ADMIT Internal Medicine; ATTEND Internal Medicine
PROC: 30233N1 Transfusion of Nonautologous Red Blood Cells into Peripheral Vein, Percutaneous Approach (ICD-10-PCS; principal; 2020-01-22)
PROC: 0JH63XZ Insertion of Tunneled Vascular Access Device into Chest Subcutaneous Tissue and Fascia, Percutaneous Approach (ICD-10-PCS; 2020-01-23)
PROC: 02HV33Z Insertion of Infusion Device into Superior Vena Cava, Percutaneous Approach (ICD-10-PCS; 2020-01-23)
PROC: B5181ZA Fluoroscopy of Superior Vena Cava using Low Osmolar Contrast, Guidance (ICD-10-PCS; 2020-01-23)
PROC: B548ZZA Ultrasonography of Superior Vena Cava, Guidance (ICD-10-PCS; 2020-01-23)
PROC: 5A1D70Z Performance of Urinary Filtration, Intermittent, Less than 6 Hours Per Day (ICD-10-PCS; 2020-01-23)
PROC: 5A1D70Z Performance of Urinary Filtration, Intermittent, Less than 6 Hours Per Day (ICD-10-PCS; 2020-01-24)
DX: N17.0 Acute kidney failure with tubular necrosis (principal); E44.1 Mild protein-calorie malnutrition; E87.2 Acidosis; I13.2 Hypertensive heart and chronic kidney disease with heart failure and with stage 5 chronic kidney disease, or end stage renal disease; D63.1 Anemia in chronic kidney disease; E11.22 Type 2 diabetes mellitus with diabetic chronic kidney disease; E83.39 Other disorders of phosphorus metabolism; E83.51 Hypocalcemia; I50.9 Heart failure, unspecified; N18.6 End stage renal disease; Z79.899 Other long term (current) drug therapy; Z79.82 Long term (current) use of aspirin; Z68.32 Body mass index [BMI] 32.0-32.9, adult
CPT/HCPCS: 36415; 36558; 71045; 74018; 76770; 76937; 77001; 80048; 80053; 80061; 80305; 81003; 82550; 82553; 82607; 82728; 82746; 82962; 83010; 83036; 83540; 83550; 83735; 83880; 84100; 84466; 84484; 85025; 85044; 86705; 86706; 86709; 86803; 86850; 86900; 86920; 87340; 93005; 93306; 93970; 99152; 99153; 99291; C1750; C1769; J0610; J0696; J0885; J1642; J1650; J1940; J2150; J2405; J2765; J3010; J3475; J3480; J3490; J7060; P9016; G0500